=== PATIENT | female | born 1945 | race Two or more races ===

== ENCOUNTER 2021-12-26 18:31 | Inpatient (IN) | payer OTHER ==
[~2021-12-26] VITALS: Ht 160 cm; Wt 72.4 kg
[2021-12-27] MEDS ORDERED: MORPHINE SULFATE 4 MG/ML SYR/VIAL IV ONE (03:15)
[2021-12-27 05:06] LABS: Basophils # (auto) 0.1 10 ^3/uL (0-0.2); Lymphocytes # (auto) 1.7 10 ^3/uL (0.4-5.4); Monocytes # (auto) 1.1 10 ^3/uL (0-1.3); Neutrophils # (auto) 6.3 10 ^3/uL (1.6-8.6); Nucleated Red Blood Cells % 0.1 %
[2021-12-27 05:08] LABS: Basophils % (auto) 0.9 % (0.0-2.0); Eosinophils # (auto) 0 10 ^3/uL (0-0.8); Eosinophils % (auto) 0.5 % (0.0-7.0); Hematocrit 37.4 % (36.0-46.0); Hemoglobin 12.9 g/dL (12.2-16.2); Lymphocytes % (auto) 18.8 % (10.0-50.0); Mean Corpuscular Hemoglobin 35.2 pg (28.0-32.0); Mean Corpuscular Hgb Conc. 34.4 g/dL (32.0-36.0); Mean Corpuscular Volume 102.1 fL (80.0-100.0); Monocytes % (auto) 12.1 % (0.0-12.0); Neutrophils % (auto) 67.7 % (37.0-80.0); Red Blood Cells 3.67 10^6/uL (4.0-5.20); Red Cell Distribution Width 16.8 % (11.8-14.3); White Blood Cell 9.3 10^3/uL (4.4-10.8)
[2021-12-27 05:19] LABS: Potassium 4.3 mmol/L (3.5-5.1)
[2021-12-27 05:20] LABS: Albumin 3.6 g/dL (3.4-5.0); Calcium 8.9 mg/dL (8.5-10.1)
[2021-12-27 05:22] LABS: BUN/Creatinine Ratio 45.6
[2021-12-27 05:25] LABS: Bilirubin, Total 0.5 mg/dL (0.2-1.0); Total Protein 8.1 g/dL (6.4-8.2)
[2021-12-27] MEDS ORDERED: HYDROcodone-ACET 5/325MG TAB PO PRN (05:30)
[2021-12-27] MEDS ORDERED: ONDANSETRON HCL 4 MG/2 ML VIAL IV PRN (05:30)
[2021-12-27] MEDS ORDERED: MORPHINE SULFATE INJ 2 MG/ml SYRG IV PRN ×2 (05:30→05:45)
[2021-12-27] MEDS ORDERED: DOCUSATE SOD 100 MG CAP PO PRN (05:30)
[2021-12-27] MEDS ORDERED: ACETAMINOPHEN 325 MG TAB PO PRN (05:30)
[2021-12-27] MEDS ORDERED: METOPROLOL TARTRATE 25 MG TAB PO ONE (05:45)
[2021-12-27] MEDS ORDERED: hydrALAZINE HCL 20 MG/ML VL IV PRN (05:45)
[2021-12-27] MEDS ORDERED: DEXTROSE (50%) 50ML SYRG IV PRN (05:45)
[2021-12-27] MEDS ORDERED: NITROGLYCERIN 0.4 MG SL TAB SL PRN (05:45)
[2021-12-27] MEDS: SODIUM CHLORIDE 0.9% 1,000 ML IV SCH ×2 (06:25→22:10)
[2021-12-27] MEDS: InsuLIN REG 1unit/0.01ml Soln (100units/ml) SC SCH ×3 (08:00→16:54)
[2021-12-27] MEDS: ACCU-CHEK COMFORT CURVE STRIP VI SCH ×4 (08:01→21:38)
[2021-12-27] MEDS: amLODIPine BESYLATE 5 MG TAB PO SCH (10:51)
[2021-12-27] MEDS: METOPROLOL TARTRATE 25 MG TAB PO SCH ×2 (10:51→21:38)
[2021-12-27] MEDS: ENOXAPARIN SOD 40 MG/0.4 ML SYRINGE SC SCH (10:51)
[2021-12-27 17:00] VITALS: BP 144/64
[2021-12-27 22:00] VITALS: BP 149/73
[2021-12-27] MEDS ORDERED: InsuLIN REG 1unit/0.01ml Soln (100units/ml) SC SCH (22:00)
[2021-12-28 05:00] VITALS: BP 113/75
[2021-12-28] MEDS ORDERED: METF-372 PO (05:53)
[2021-12-28] MEDS ORDERED: AZAT50TA6 PO (05:53)
[2021-12-28] MEDS ORDERED: ALEN70SO OR (05:53)
[2021-12-28] MEDS ORDERED: AMLO-489 PO (05:53)
[2021-12-28] MEDS ORDERED: PRE1T PO (05:53)
[2021-12-28] MEDS ORDERED: LABE100T4 PO (05:53)
[2021-12-28] MEDS ORDERED: FOLI1TAB6 PO (05:53)
[2021-12-28] MEDS: ACCU-CHEK COMFORT CURVE STRIP VI SCH ×3 (06:28→17:47)
[2021-12-28] MEDS: InsuLIN REG 1unit/0.01ml Soln (100units/ml) SC SCH ×3 (06:28→17:48)
[2021-12-28 06:59] LABS: Basophils # (auto) 0.1 10 ^3/uL (0-0.2); Basophils % (auto) 1.2 % (0.0-2.0); Eosinophils # (auto) 0.2 10 ^3/uL (0-0.8); Eosinophils % (auto) 3.3 % (0.0-7.0); Hemoglobin 11.2 g/dL (12.2-16.2); Lymphocytes # (auto) 1.3 10 ^3/uL (0.4-5.4); Lymphocytes % (auto) 22.9 % (10.0-50.0); Mean Corpuscular Hemoglobin 33.5 pg (28.0-32.0); Mean Corpuscular Volume 101.3 fL (80.0-100.0); Monocytes # (auto) 0.9 10 ^3/uL (0-1.3); Monocytes % (auto) 15.1 % (0.0-12.0); Neutrophils # (auto) 3.4 10 ^3/uL (1.6-8.6); Neutrophils % (auto) 57.5 % (37.0-80.0); Nucleated Red Blood Cells % 0.1 %; Red Blood Cells 3.36 10^6/uL (4.0-5.20); Red Cell Distribution Width 17.4 % (11.8-14.3); White Blood Cell 5.9 10^3/uL (4.4-10.8)
[2021-12-28 07:14] LABS: Albumin 2.9 g/dL (3.4-5.0); BUN/Creatinine Ratio 62.7
[2021-12-28 07:17] LABS: Bilirubin, Total 0.4 mg/dL (0.2-1.0); Total Protein 6.5 g/dL (6.4-8.2)
[2021-12-28 09:00] VITALS: BP 113/47
[2021-12-28] MEDS: amLODIPine BESYLATE 5 MG TAB PO SCH (10:21)
[2021-12-28] MEDS: METOPROLOL TARTRATE 25 MG TAB PO SCH (10:21)
[2021-12-28] MEDS: ENOXAPARIN SOD 40 MG/0.4 ML SYRINGE SC SCH (10:22)
[2021-12-28 13:00] VITALS: BP 131/51
[2021-12-28] MEDS: SODIUM CHLORIDE 0.9% 1,000 ML IV SCH (15:30)
[2021-12-28 17:00] VITALS: BP 159/61
[2021-12-28 17:12] VITALS: BP 131/51
== END 2021-12-28 18:23 | disposition home or self-care (01) | DRG 342 ==
LOC: ER 18:31 → OVERFLOW 12-27 05:37 → WEST WING 12-27 13:45
PROVIDERS: ADMIT Nurse Practitioner Family; ATTEND Internal Medicine
DX: S42.492A Other displaced fracture of lower end of left humerus, initial encounter for closed fracture (principal); E11.9 Type 2 diabetes mellitus without complications; E78.00 Pure hypercholesterolemia, unspecified; E78.5 Hyperlipidemia, unspecified; I10 Essential (primary) hypertension; Z20.822 Contact with and (suspected) exposure to COVID-19; M19.90 Unspecified osteoarthritis, unspecified site; W18.39XA Other fall on same level, initial encounter; Y93.89 Activity, other specified; Y92.89 Other specified places as the place of occurrence of the external cause; Y99.8 Other external cause status
CPT/HCPCS: 36415; 80053; 82962; 85025; 96372; G0378; J1815